=== PATIENT | female | born 1935 | race Caucasian/White ===

== ENCOUNTER 2018-10-29 21:00 | Emergency (ER) | payer OTHER ==
[2018-10-29] MEDS ORDERED: NA CHLORIDE 0.9% 1,000 ML ONE (21:52)
[2018-10-29 21:58] LABS: BUN Blood Urea Nitrogen 16 mg/dL (7-18); Bicarbonate 34 mmol/L (21-32); Glucose Level 122 mg/dL (74-106); Potassium 3.7 mmol/L (3.5-5.1); Sodium Level 142 mmol/L (136-145); Troponin (Emerg Dept Use Only) < 0.02 ng/mL (0.0-0.045)
[2018-10-29 22:04] LABS: Absolute Lymphocytes (CBC) 2.2 K/uL (0.7-4.9); Absolute Monocytes 0.9 K/uL (0.1-1.3); Absolute Neutrophil 4.6 K/uL (1.8-8.0); Basophils % 0.8 % (0-1.3); Eosinophils % 1.1 % (0-4.4); Hematocrit 36.9 % (36.0-45.0); MPV 7.6 fL (7.6-11.3); RBC Red Blood Cell Count 4.06 M/uL (3.86-4.86)
[2018-10-29 23:24] LABS: Urine Amorphous Sediment 1+ /HPF (NONE SEEN); Urine Bacteria <20 /HPF (<20); Urine Culture Reflex Order NOT NEEDED; Urine Mucus SLIGHT /HPF (NONE SEEN); Urine RBC NONE SEEN /HPF (NONE SEEN)
--- NOTE | 2018-10-29 23:52 | ER ---
Nurse's Notes [facility] Name: Shannon Short Age: 83 yrs Sex: Female : 1935 Arrival Date: 10/29/2018 Time: 21:02 Bed 24 Private MD: Diagnosis: Syncope and collapse Presentation: 10/29 21:03 Presenting complaint: EMS states: pt was signing at [employer] and started to feel weak, tl3 sat down and passed out for a few minutes, was AAOX4 at present. Transition of care: patient was not received from another setting of care. Onset of symptoms was October 29, 2018. Risk Assessment: Do you want to hurt yourself or someone else? Patient reports no desire to harm self or others. Initial Sepsis Screen: Does the patient meet any 2 criteria? No. Patient's initial sepsis screen is negative. Does the patient have a suspected source of infection? No. Patient's initial sepsis screen is negative. Care prior to arrival: IV initiated. 20 GA, in the right antecubital area. 21:03 Method Of Arrival: EMS: [facility] tl3 21:03 Acuity: SHAQ 3 tl3 Triage Assessment: 21:06 General: Appears in no apparent distress. slender, well groomed, well developed, well tl3 nourished, Behavior is calm, cooperative, appropriate for age. Pain: Denies pain. Neuro: Level of Consciousness is awake, alert, obeys commands, Oriented to person, place, time, situation, Appropriate for age Reports a syncopal episode. Cardiovascular: Patient's skin is warm and dry. Respiratory: Airway is patent Respiratory effort is even, unlabored, Respiratory pattern is regular, symmetrical. GI: No signs and/or symptoms were reported involving the gastrointestinal system. : No signs and/or symptoms were reported regarding the genitourinary system. Derm: No signs and/or symptoms reported regarding the dermatologic system. Musculoskeletal: No signs and/or symptoms reported regarding the musculoskeletal system. 21:09 : Reports incontinence. tl3 Historical: - Allergies: 21:06 Codeine; tl3 21:06 Vioxx; tl3 21:06 PENICILLINS; tl3 21:06 promethazine HCl; tl3 - Home Meds: 21:14 Vitamin D Oral 600 unit daily [Active]; Calcium Carbonate Oral 1000 mg daily for tl3 Osteoporosis [Active]; magnesium oxide 400 mg Oral cap 400 mg daily for Hypomagnesemia [Active]; metoprolol tartrate 25 mg Oral tab 1 tab 2 times per day for Hypertension [Active]; Lipitor 80 mg Oral tab 0.5 tab once daily for Mixed Hyperlipidemia [Active]; atorvastatin 10 mg oral tab 1 tab once daily [Active]; Protonix 20 mg Oral TbEC [Active]; omeprazole 40 mg Oral cpDR 1 cap once daily for Gastroesophageal reflux [Active]; - PMHx: 21:06 GERD; High Cholesterol; Hypertension; tl3 - Immunization history:: Adult Immunizations up to date. - Social history:: Smoking status: unknown. - Ebola Screening: : No symptoms or risks identified at this time. - Family history:: not pertinent. - Hospitalizations: : No recent hospitalization is reported. Screenin:15 Abuse screen: Denies threats or abuse. Nutritional screening: No deficits noted. tl3 Tuberculosis screening: No symptoms or risk factors identified. Fall Risk None identified. Assessment: 21:15 Reassessment: No changes from previously documented assessment. Neuro: No deficits tl3 noted. Cardiovascular: Rhythm is regular. 22:29 Reassessment: Patient appears in no apparent distress at this time. No changes from tl3 previously documented assessment. Patient and/or family updated on plan of care and expected duration. Pain level reassessed. Patient is alert, oriented x 3, equal unlabored respirations, skin warm/dry/pink. pt has no needs at this time. 10/30 00:01 Reassessment: Patient appears in no apparent distress at this time. No changes from tl3 previously documented assessment. Patient and/or family updated on plan of care and expected duration. Pain level reassessed. Patient is alert, oriented x 3, equal unlabored respirations, skin warm/dry/pink. pt ambulated to restroom without any difficulty, being discharged. Vital Signs: 10/29 21:10 BP 159 / 84; Pulse 58; Resp 18; Temp 97.6; Pulse Ox 100% ; Weight 45.36 kg; Height 5 tl3 ft. 2 in. (157.48 cm); 22:29 BP 149 / 73; Pulse 58; Resp 18; Pulse Ox 100% on R/A; tl3 10/30 00:01 BP 146 / 67; Pulse 59; Resp 18; Pulse Ox 98% on R/A; tl3 10/29 21:10 Body Mass Index 18.29 (45.36 kg, 157.48 cm) tl3 ED Course: 10/29 21:02 Patient arrived in ED. tl3 21:04 Triage completed. tl3 21:05 Baron Birmingham MD is Attending Physician. rn 21:10 Arm band placed on right wrist. tl3 21:15 Patient has correct armband on for positive identification. tl3 21:15 No provider procedures requiring assistance completed. Maintain EMS IV. Dressing tl3 intact. Good blood return noted. Site clean \T\ dry. Gauge \T\ site: 20 g RAC. 21:17 Luh Mccall, RN is Primary Nurse. tl3 21:[address] via stretcher. tl3 21:25 CT Head Brain wo Cont In Process Unspecified. EDMS 21:29 CT completed. Patient tolerated procedure well. Patient moved back from CT. nj 22:29 Speci-cath kit inserted, using sterile technique, specimen obtained. 8fr cath. tl3 10/30 00:01 IV discontinued, intact, bleeding controlled, No redness/swelling at site. Pressure tl3 dressing applied. Administered Medications: 10/29 21:48 Drug: NS 0.9% 500 ml Route: IV; Rate: bolus; Site: left antecubital; Delivery: Primary tl3 tubing; 22:15 Follow up: IV Status: Completed infusion; IV Intake: 500ml tl3 Point of Care Testing: Blood Glucose: 21:17 Blood Glucose: 120 mg/dL; tl3 Ranges: Intake: 22:15 IV: 500ml; Total: 500ml. tl3 Outcome: 23:51 Discharge ordered by . rn 10/30 00:01 Discharged to home ambulatory. tl3 Condition: stable Discharge instructions given to patient, family, Instructed on discharge instructions, follow up and referral plans. Demonstrated understanding of instructions, follow-up care. 00:03 Patient left the ED. tl3 Signatures: Dispatcher [employer] EDMS Baron Birmingham MD MD rn Jordan, Nathan nj Lowrey, Tammy, JASON RN tl3 Corrections: (The following items were deleted from the chart) 10/29 21:15 21:10 BP 159 / 84; Pulse 58bpm; Resp 18bpm; tl3 tl3
--- NOTE | 2018-10-29 23:52 | EDPHYS ---
Physician Documentation [facility] Name: Shannon Short Age: 83 yrs Sex: Female : 1935 Arrival Date: 10/29/2018 Time: 21:02 Bed 24 Private MD: ED Physician Baron Birmingham HPI: 10/29 21:38 This 83 yrs old Female presents to ER via EMS with complaints of Syncope. rn 21:38 The patient has experienced syncope. Onset: The symptoms/episode began/occurred just rn prior to arrival. Duration: This was a single episode. Associated injury: The patient did not suffer any apparent associated injury. Current symptoms: Currently, the patient is not experiencing any symptoms. The patient has not experienced similar symptoms in the past. Reports at [place], stood up to sing, got lightheaded, sat down, then had syncopal episode. No fever/vomiting/diarrhea. NO chest pain/sob/abd pain. Reports has been having lower back pain and was going to see Dr. Horne to get her urine tested. . Historical: - Allergies: 21:06 Codeine; tl3 21:06 Vioxx; tl3 21:06 PENICILLINS; tl3 21:06 promethazine HCl; tl3 - Home Meds: 21:14 Vitamin D Oral 600 unit daily [Active]; Calcium Carbonate Oral 1000 mg daily for tl3 Osteoporosis [Active]; magnesium oxide 400 mg Oral cap 400 mg daily for Hypomagnesemia [Active]; metoprolol tartrate 25 mg Oral tab 1 tab 2 times per day for Hypertension [Active]; Lipitor 80 mg Oral tab 0.5 tab once daily for Mixed Hyperlipidemia [Active]; atorvastatin 10 mg oral tab 1 tab once daily [Active]; Protonix 20 mg Oral TbEC [Active]; omeprazole 40 mg Oral cpDR 1 cap once daily for Gastroesophageal reflux [Active]; - PMHx: 21:06 GERD; High Cholesterol; Hypertension; tl3 - Immunization history:: Adult Immunizations up to date. - Social history:: Smoking status: unknown. - Ebola Screening: : No symptoms or risks identified at this time. - Family history:: not pertinent. - Hospitalizations: : No recent hospitalization is reported. ROS: 21:38 Constitutional: Negative for fever, chills, and weight loss, Eyes: Negative for injury, rn pain, redness, and discharge, Neck: Negative for injury, pain, and swelling, Cardiovascular: Negative for chest pain, palpitations, and edema, Respiratory: Negative for shortness of breath, cough, wheezing, and pleuritic chest pain, Abdomen/GI: Negative for abdominal pain, nausea, vomiting, diarrhea, and constipation, MS/Extremity: Negative for injury and deformity, Skin: Negative for injury, rash, and discoloration, Neuro: Negative for headache, weakness, numbness, tingling, and seizure. Exam: 21:38 Constitutional: This is a well developed, well nourished patient who is awake, alert, rn and in no acute distress. Head/Face: Normocephalic, atraumatic. Eyes: Pupils equal round and reactive to light, extra-ocular motions intact. Lids and lashes normal. Conjunctiva and sclera are non-icteric and not injected. Cornea within normal limits. Periorbital areas with no swelling, redness, or edema. ENT: dry MM Neck: Trachea midline, no thyromegaly or masses palpated, and no cervical lymphadenopathy. Supple, full range of motion without nuchal rigidity, or vertebral point tenderness. No Meningismus. Cardiovascular: Regular rate and rhythm. No pulse deficits. Respiratory: Lungs have equal breath sounds bilaterally, clear to auscultation. No increased work of breathing, no retractions or nasal flaring. Abdomen/GI: soft, non-tender MS/ Extremity: Pulses equal, no cyanosis. Neurovascular intact. Full, normal range of motion. Equal circumference. Neuro: Awake and alert, GCS 15, oriented to person, place, time, and situation. Cranial nerves II-XII grossly intact. Motor strength 5/5 in all extremities. Sensory grossly intact. Cerebellar exam normal. Vital Signs: 21:10 BP 159 / 84; Pulse 58; Resp 18; Temp 97.6; Pulse Ox 100% ; Weight 45.36 kg; Height 5 tl3 ft. 2 in. (157.48 cm); 22:29 BP 149 / 73; Pulse 58; Resp 18; Pulse Ox 100% on R/A; tl3 10/30 00:01 BP 146 / 67; Pulse 59; Resp 18; Pulse Ox 98% on R/A; tl3 10/29 21:10 Body Mass Index 18.29 (45.36 kg, 157.48 cm) tl3 MDM: 10/29 21:05 Patient medically screened. rn 23:50 Differential Diagnosis: cardiac arrhythmia, idiopathic syncope, vasovagal episode, rn dehydration. Data reviewed: vital signs, nurses notes, lab test result(s), EKG, radiologic studies, CT scan, and as a result, I will discharge patient. Counseling: I had a detailed discussion with the patient and/or guardian regarding: the historical points, exam findings, and any diagnostic results supporting the discharge/admit diagnosis, lab results, radiology results, the need for outpatient follow up, to return to the emergency department if symptoms worsen or persist or if there are any questions or concerns that arise at home. Response to treatment: the patient's symptoms have markedly improved after treatment, the patient's symptoms have resolved after treatment, the patient's condition has returned to base line, the patient is now symptom free, patient is well hydrated. and as a result, I will discharge patient. Special discussion: I discussed with the patient/guardian in detail that at this point there is no indication for admission to the hospital. It is understood, however, that if the symptoms persist or worsen the patient needs to return immediately for re-evaluation. 10/29 21:11 Order name: Basic Metabolic Panel; Complete Time: 23:12 rn 10/29 21:11 Order name: CBC with Diff; Complete Time: 23:12 rn 10/29 21:11 Order name: CT Head Brain wo Cont rn 10/29 21:11 Order name: Troponin (emerg Dept Use Only); Complete Time: 23:12 rn 10/29 21:11 Order name: Urine Microscopic Only; Complete Time: 23:26 rn 10/29 21:19 Order name: Glucose, Ancillary Testing; Complete Time: 23:12 EDMS 10/29 21:11 Order name: EKG; Complete Time: 21:11 rn 10/29 21:11 Order name: Cardiac monitoring; Complete Time: 21:17 rn 10/29 21:11 Order name: EKG - Nurse/Tech; Complete Time: :40 rn 10/29 21:11 Order name: IV Saline Lock; Complete Time: 21:17 rn 10/29 21:11 Order name: Labs collected and sent; Complete Time: 21:40 rn 10/29 21:11 Order name: NPO; Complete Time: 21:18 rn 10/29 21:11 Order name: O2 Per Protocol; Complete Time: 21:18 rn 10/29 21:11 Order name: O2 Sat Monitoring; Complete Time: 21:18 rn Administered Medications: 21:48 Drug: NS 0.9% 500 ml Route: IV; Rate: bolus; Site: left antecubital; Delivery: Primary tl3 tubing; 22:15 Follow up: IV Status: Completed infusion; IV Intake: 500ml tl3 Point of Care Testing: Blood Glucose: 21:17 Blood Glucose: 120 mg/dL; tl3 Ranges: Critical Glucose Levels:Adult <50 mg/dl or >400 mg/dl <40 mg/dl or >180 mg/dl Disposition: 10/29/18 23:51 Discharged to Home. Impression: Syncope and collapse. - Condition is Stable. - Discharge Instructions: Syncope. - Medication Reconciliation Form, Thank You Letter, Antibiotic Education, Prescription Opioid Use form. - Follow up: Private Physician; When: 2 - 3 days; Reason: Recheck today's complaints, Re-evaluation by your physician. - Problem is new. - Symptoms have improved. Signatures: Dispatcher [employer] EDMS Baron Birmingham MD MD rn Lowrey, Tammy, RN RN tl3 Corrections: (The following items were deleted from the chart) 10/30 00:03 10/29 23:51 10/29/2018 23:51 Discharged to Home. Impression: Syncope and collapse. tl3 Condition is Stable. Forms are Medication Reconciliation Form, Thank You Letter, Antibiotic Education, Prescription Opioid Use. Follow up: Private Physician; When: 2 - 3 days; Reason: Recheck today's complaints, Re-evaluation by your physician. Problem is new. Symptoms have improved. rn
[2018-10-30 00:54] VITALS: TEMP 97.6
[2018-10-30 00:56] VITALS: BP 146/67; O2SAT 98
--- NOTE | 2018-10-30 07:02 | EKG ---
Test Date: 2018-10-29 Test Time: 21:41:04 Transportation Lead: SHRUTHI MEASUREMENT RESULTS: Intervals: Rate: 60 OK: 142 QRSD: 112 QT: 454 QTc: 454 [place]: P: 62 OK: 142 QRS: 47 T: 31 INTERPRETIVE STATEMENTS: Normal sinus rhythm Incomplete right bundle branch block Borderline ECG Compared to ECG 10/28/2015 22:15:11 Incomplete right bundle-branch block now present Electronically Signed On 10-30-18 07:01:35 LOG CLERK by Donn Segal
--- NOTE | 2018-10-30 13:34 | RAD REPORT ---
EXAM DESCRIPTION: Head Brain Wo Cont CLINICAL HISTORY: 83 years Female, SYNCOPE COMPARISON: None. TECHNIQUE: 5 mm axial images were obtained along with 3 mm reformatted coronal and sagittal images. This exam was performed according to our departmental dose-optimization program, which includes autom ated exposure control, adjustment of the mA and/or kV according to patient size and/or less of iterat amelia reconstruction technique FINDINGS: No acute abnormal extracerebral fluid collections are demonstrated. The cortical sulci, ventricles, and cisterns are mildly prominent suggesting mild generalized volume loss. There are moderately severe bilateral microangiopathic white matter changes. There are no areas of altered attenuation identified to suggest acute hemorrhage, infarction or mass lesion. The visualized portions of the paranasal sinuses and mastoid air cells are clear. IMPRESSION: 1. No acute intracranial changes. Electronically signed by Jeff Vance MD 10/29/2018 9:37 AM RESIZER OPERATOR Due to temporary technical issues with the PACS/Fluency reporting system, reports are being signed by the in house radiologist as a courtesy to ensure prompt reporting. The interpreting radiologist is f ully responsible for the content of the report.
== END 2018-10-30 00:03 | disposition home or self-care (01) ==
LOC: ER 21:00
DX: R55 Syncope and collapse (principal); I10 Essential (primary) hypertension; E78.00 Pure hypercholesterolemia, unspecified; K21.9 Gastro-esophageal reflux disease without esophagitis; Z88.0 Allergy status to penicillin; Z88.5 Allergy status to narcotic agent; Z88.8 Allergy status to other drugs, medicaments and biological substances
CPT/HCPCS: 36415; 70450; 80048; 81015; 82962; 84484; 85025; 93005; 99284; J7030

== ENCOUNTER 2020-08-21 15:06 | Inpatient (IN) | payer OTHER ==
--- OUTSIDE RECORDS SUMMARY | 2020-08-21 15:09 | XMS REPORT | Continuity of Care Document ---
:07/08/1961 Author Organization [employer] Care Team Providers Name Role Phone [employer] Unavailable Un available Problems Problem Status Onset Classification Date Comments Sourc e Date Reported ANEMIA IN CHRONIC Active 03/01/20 Condition 03/25/2015 M H KIDNEY DISEASE [facility] RENAL CELL CANCER Active 08/18/20 Condition 03/25/2015 M H [facility] SECONDARY Active 03/10/20 Condition 03/25/2015 MH HYPERPARATHYROIDISM 13 [facility] Group CHRONIC KIDNEY DISEASE Active Condition 03/25/2015 STAGE IV (SEVERE) Me dical Group UNSPECIFIED ESSENTIAL Active Condition 03/25/2015 HYPERTENSION Medical Group DM Active Condition 03/25/2015 Medical Group 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6 UNITS No Longer 08/18/20 MH QD Active 13 [facility] Group MECLIZINE HCL PRN No Longer 08/18/20 MH 25 MG TABS Active 13 [facility] Group GLIPIZIDE 10 1 tab daily No Longer 08/18/20 MH MG TABS Active 13 Medical Group MECLIZINE HCL PRN No Longer 08/18/20 MH 25 MG TABS Active 13 Medical Group CRESTOR 20 MG 1 tab qd Active 03/10/20 MH TABS 13 [facility] Group COLCRYS 0.6 MG 1 tab daily Active 03/10/20 MH TABS prn gout 13 [facility] Group PRAVASTATIN 1 tab daily No Longer 03/10/20 MH SODIUM 80 MG Active 13 Medical TABS Group FUROSEMIDE 20 1 tab daily No Longer 03/10/20 MH MG TABS Active 13 Medical Group ASPIRIN 81 MG 1 tab daily No Longer 03/10/20 MH TABS Active 13 Medical Group ROCALTROL 0.25 1 TAB QD Active 03/10/20 MH MCG CAPS 13 [facility] Group LISINOPRIL 20 1 tab qd No Longer 03/10/20 MH MG TABS Active 13 Medical Group ALLOPURINOL 1 tab qd No Longer 03/10/20 MH 300 MG TABS Active 13 Medical Group CRESTOR 20 MG 1 tab qd Active 03/10/20 MH TABS 13 Medical Group COLCRYS 0.6 MG 1 tab daily Active 03/10/20 MH TABS prn gout 13 Medical Group FUROSEMIDE 20 1 tab daily No Longer 03/10/20 MH MG TABS Active 13 Medical Group LISINOPRIL 20 1 tab qd No Longer 03/10/20 MH MG TABS Active 13 Medical Group ALLOPURINOL 1 tab qd No Longer 03/10/20 MH 300 MG TABS Active 13 Medical Group CARVEDILOL 25 1 tab twice Active MH MG TABS a day Medical Group AMLODIPINE 1 tab daily Active MH BESYLATE 10 MG Medical TABS Group Allergies, Adverse Reactions, Alerts No Known Medication Allergies Immunizations No Data Provided for This Section Results Order Name Results Value Reference Date Interpretation Comments Laurie rce Range Chemistry BUN 85 7 - 22 2014 Medical Group Chemistry CREATININE 6.7 0.5 - 1.4 2014 Medical Group Chemistry SODIUM 142 135 - 145 MEQ/L 2014 Medical Group Chemistry POTASSIUM 4.5 3.5 - 5.1 MEQ/L 2014 Medical Group Chemistry CALCIUM 9.0 8.5 - 10.5 2014 Medical Group Chemistry PO4 4.8 2.5 - 4.5 2014 Medical Group Chemistry ALBUMIN 3.8 3.5 - 5.0 2014 Medical Group Chemistry TESTO, TOTAL 225 241 - 827 2014 Medical Group Chemistry PTH, INTACT 239.6 11.1 - 79.5 2014 Medical Group Chemistry PSA 2.46 0.00 - 4.00 2014 Medical Group Hematology HGB 11.4 14.0 - 18.0 2014 Medical Group Hematology HCT 35.7 42.0 - 54.0 2014 Medical Group Hematology PLATELETS 205 133 - 450 K/CMM 2014 Medical Group Chemistry PTH, INTACT 75 10 - 65 2013 Medical Group Chemistry CALCIUM 9.8 8.6 - 10.3 2013 Medical Group Chemistry PTH, INTACT 75 10 - 65 2013 Medical Group Chemistry CALCIUM 9.8 8.6 - 10.3 2013 Medical Group Chemistry PTH, INTACT 80 10 - 65 2012 Medical Group Chemistry CALCIUM 10.0 8.6 - 10.3 2012 Medical Group Chemistry PTH, INTACT 80 10 - 65 2012 Medical Group Chemistry CALCIUM 10.0 8.6 - 10.3 2012 Medical Group Chemistry PTH, INTACT 129 10 - 65 2012 Medical Group Chemistry CALCIUM 9.3 8.6 - 10.3 2012 Medical Group Chemistry PTH, INTACT 129 10 - 65 2012 Medical Group Chemistry CALCIUM 9.3 8.6 - 10.3 2012 Medical Group Pathology Reports No Data Provided for This Section Diagnostic Reports No Data Provided for This Section Consultation Notes No Data Provided for This Section Discharge Summaries No Data Provided for This Section History and Physicals No Data Provided for This Section Vital Signs No Data Provided for This Section Encounters Location Location Encounter Encounter Reason Attending ADM CA Stat Source Details Type Number For Provider Date Date Visit [facility] Lab Report [id number] Sowmya Ring, 11/29 11/29 [place] 540 /2014 [facility] Lab Report [id number] Sowmya Ring, 01/10 01/10 JULI Norman 150 /2014 [facility] Lab Report [id number] Sowmya Ring, 03/25 03/25 [place] [facility] 830 /2014 Jordan l [place] [facility] Nephrology Procedures No Data Provided for This Section Assessment and Plan No Data Provided for This Section Plan of Care No Data Provided for This Section Social History No Data Provided for This Section Family History No Data Provided for This Section Advance Directives No Data Provided for This Section Functional Status No Data Provided for This Section
--- NOTE | 2020-08-21 16:19 | RAD REPORT ---
EXAM DESCRIPTION: RAD - Chest Single View - 08/21/2020 4:13 pm CLINICAL HISTORY: COUGH COMPARISON: July 2012 TECHNIQUE: AP portable chest image was obtained 08/21/2020 4:13 pm . FINDINGS: Lung volumes are comparatively low. Fibrotic lung pattern is not substantially different w hen adjusting for the shallow inspiration. Calcified granuloma noted. No focal mass, consolidation, f ailure or volume overload. Heart and vasculature are normal. No measurable pleural effusion and no pn eumothorax. No acute bony abnormality seen. No acute aortic findings suspected. IMPRESSION: Limited shallow inspiration exam with no acute cardiopulmonary process. No significant change from comparison study.
[2020-08-21 16:30] LABS: Urine Blood 1+ (NEG); Urine Glucose NEGATIVE (NEG); Urine Protein 2+ (NEG); Urine Specific Gravity 1.025 (1.005-1.030); Urine pH 6.5 (5.0-7.0)
[2020-08-21 16:44] LABS: Absolute Lymphocytes (CBC) 1.2 K/uL (0.7-4.9); Basophils % 0.5 % (0-1.3); Hematocrit 41.6 % (36.0-45.0); Lymphocytes % 9.5 % (15.3-44.8); MPV 7.9 fL (7.6-11.3); Protime INR 1.01; RBC Red Blood Cell Count 4.65 M/uL (3.86-4.86)
[2020-08-21] MEDS ORDERED: NA CHLORIDE 0.9% 1,000 ML ONE (16:53)
[2020-08-21] MEDS ORDERED: NA CHLORIDE 0.9% 500 ML ONE (16:53)
[2020-08-21 16:57] LABS: ALT/SGPT 21 U/L (12-78); AST/SGOT 29 U/L (15-37); Albumin 3.3 g/dL (3.4-5.0); Alkaline Phosphatase 90 U/L (45-117); BUN Blood Urea Nitrogen 12 mg/dL (7-18); Bicarbonate 30 mmol/L (21-32); Bilirubin Direct 0.1 mg/dL (0-0.2); Bilirubin Total 0.4 mg/dL (0.2-1.0); Glucose Level 118 mg/dL (74-106); Magnesium 2.3 mg/dL (1.8-2.4); NT PRO-BNP 855 pg/mL (<450); Potassium 3.9 mmol/L (3.5-5.1); Protein, Total 7.4 g/dL (6.4-8.2); Sodium Level 142 mmol/L (136-145); Troponin (Emerg Dept Use Only) < 0.02 ng/mL (0.0-0.045)
--- NOTE | 2020-08-21 17:08 | ER ---
Nurse's Notes [facility] Name: Shannon Short Age: 84 yrs Sex: Female : 1935 Arrival Date: 08/21/2020 Time: 15:21 Bed 14 Private MD: Diagnosis: Altered mental status, unspecified;Urinary tract infection, site not specified;Alzheimer's disease;Other slipping, tripping and stumbling and falls Presentation: 08/21 15:20 Chief complaint: EMS states: patient brought in for worsening AMS x1 week. pt fell 2 zb days ago. hx of Alzheimer's. family report foul urine smell. BG level 154. Coronavirus screen: At this time, the client does not indicate any symptoms associated with coronavirus-19. Ebola Screen: No symptoms or risks identified at this time. Initial Sepsis Screen: Does the patient meet any 2 criteria? No. Patient's initial sepsis screen is negative. Does the patient have a suspected source of infection? No. Patient's initial sepsis screen is negative. Risk Assessment: Do you want to hurt yourself or someone else? Patient reports no desire to harm self or others. Onset of symptoms was August 19, 2020. 15:20 Method Of Arrival: EMS: [facility] zb 15:20 Acuity: SHAQ 2 zb Triage Assessment: 16:05 General: Appears in no apparent distress. comfortable, Behavior is calm, cooperative, zb appropriate for age. Pain: Denies pain. EENT: No signs and/or symptoms were reported regarding the EENT system. Neuro: Level of Consciousness is awake, alert, obeys commands, Oriented to person, situation. Cardiovascular: Capillary refill < 3 seconds in bilateral Patient's skin is warm and dry. Respiratory: Airway is patent Respiratory effort is even, unlabored, Respiratory pattern is regular, Breath sounds are clear bilaterally. GI: Abdomen is flat, distended, Bowel sounds present X 4 quads. : Urine is cloudy. Derm: Skin is intact, is fragile, Skin is dry, Skin is normal. Musculoskeletal: Circulation, motion, and sensation intact. Capillary refill < 3 seconds, in bilateral Range of motion: intact in all extremities. Historical: - Allergies: 16:19 Codeine; zb 16:19 PENICILLINS; zb 16:19 promethazine HCl; zb 16:19 Vioxx; zb - Home Meds: 16:19 atorvastatin 40 mg oral tab [Active]; metoprolol tartrate 25 mg Oral tab 1 tab 2 times zb per day for Hypertension [Active]; memantine oral oral [Active]; mirtazapine 30 mg oral tab [Active]; Xanax Oral [Active]; - PMHx: 16:19 GERD; High Cholesterol; Hypertension; zb - Immunization history:: Adult Immunizations up to date. - Family history:: not pertinent. - Social history:: Smoking status: unknown. Screenin:00 Abuse screen: Denies threats or abuse. Denies injuries from another. Nutritional zb screening: No deficits noted. Tuberculosis screening: No symptoms or risk factors identified. Fall Risk Fall in past 12 months (25 points). No secondary diagnosis (0 pts). IV access (20 points). Ambulatory Aid- Crutches/Cane/Walker (15 pts). Gait- Weak (10 pts.). Mental Status- Overestimates/Forgets Limitations (15 pts.). Total Walls Fall Scale indicates High Risk Score (45 or more points). Fall prevention measures have been instituted. Side Rails Up X 2 Placed Close to Nursing Station Frequent Obs/Assessments Occuring Family Present and informed to notify staff if the need to leave the bedside As available patient and family educated on Fall Prevention Program and Strategies. Assessment: 16:19 Reassessment: See triage assessment. zb 17:19 Reassessment: Patient appears in no apparent distress at this time. Patient and/or zb family updated on plan of care and expected duration. Pain level reassessed. AOX1. family at the bedside. 18:19 Reassessment: Patient appears in no apparent distress at this time. Patient and/or zb family updated on plan of care and expected duration. Pain level reassessed. pt aox1. family member states pt will start to . pt placed on bedplan. 19:19 Reassessment: Patient appears in no apparent distress at this time. Patient and/or jd3 family updated on plan of care and expected duration. Pain level reassessed. family at bedside. aox1. denies any pain at this time. 20:20 Reassessment: Patient appears in no apparent distress at this time. Patient and/or jd3 family updated on plan of care and expected duration. Pain level reassessed. pt at bedside. family has given BP medication to patient. anxious alert ECP. medications given. 21:00 Reassessment: Patient appears in no apparent distress at this time. Patient and/or jd3 family updated on plan of care and expected duration. Pain level reassessed. family at bedside. changed linen. pt more relaxed. 21:56 Reassessment: notified family of admission. pt resting quietly. jd3 Vital Signs: 15:20 BP 120 / 92; Pulse 97; Resp 18; Temp 98.4(O); Pulse Ox 99% on R/A; Weight 56.7 kg; zb Height 5 ft. 2 in. (157.48 cm); Pain 0/10; 16:45 BP 160 / 85; Pulse 92; Resp 16; Pulse Ox 97% on R/A; jd3 18:30 BP 149 / 92; Pulse 95; Resp 16; Pulse Ox 98% on R/A; jd3 20:30 BP 183 / 98; Pulse 94; Resp 18; Pulse Ox 98% on R/A; jd3 15:20 Body Mass Index 22.86 (56.70 kg, 157.48 cm) zb ED Course: 15:21 Patient arrived in ED. zb 15:24 Royal Ruiz MD is Attending Physician. leonila 15:55 Paula Butler, JASON is Primary Nurse. zb 16:05 Triage completed. zb 16:08 Arm band placed on. zb 16:08 Patient has correct armband on for positive identification. Bed in low position. Call zb light in reach. Side rails up X 1. Adult w/ patient. Pulse ox on. NIBP on. 16:13 XRAY Chest (1 view) In Process Unspecified. EDMS 16:14 Radiology exam delayed due to IV insertion attempt and/or patient not having mw3 appropriate IV at this time. 17:05 Abel Horne MD is Hospitalizing Provider. leonila 21:58 No provider procedures requiring assistance completed. Patient admitted, IV remains in jd3 place. Administered Medications: 18:35 Drug: Rocephin 1 grams Route: IV; Rate: per protocol; Site: right antecubital; zb 22:03 Follow up: Response: No adverse reaction; IV Status: Completed infusion zb 18:35 Drug: foLIC Acid 1 mg Route: IVPB; Site: right antecubital; zb 22:00 Follow up: Response: No adverse reaction; IV Status: Completed infusion; IV Intake: [id number] 18:36 Drug: NS 0.9% 500 ml Route: IV; Rate: bolus; Site: right antecubital; zb 22:03 Follow up: Response: No adverse reaction; IV Status: Completed infusion; IV Intake: zb 500ml 18:36 Drug: NS 0.9% 1000 ml Route: IV; Rate: 125 ml/hr; Site: right antecubital; zb 22:01 Follow up: Response: No adverse reaction; IV Status: Infusion continued; IV Intake: jd3 375ml 20:12 Drug: Ativan 0.5 mg Route: IVP; Site: right antecubital; zb 20:45 Follow up: Response: No adverse reaction; Anxiety decreased jd3 21:02 Not Given (Duplicate Order): Ativan 0.5 mg IVP once zb Intake: 22:00 IV: 10ml; Total: 10ml. jd3 22:01 IV: 375ml; Total: 385ml. jd3 22:03 IV: 500ml; Total: 885ml. zb Outcome: 17:07 Decision to Hospitalize by Provider. leonila 21:58 Admitted to Med/surg accompanied by tech, via stretcher, room 412, Report called to ching Rivas RN 21:58 Condition: stable 21:58 Instructed on the need for admit. 22:04 Patient left the ED. zb Signatures: Dispatcher [employer] Royal Javed MD MD cha Davies, Jonathon, RN RN jd3 Willis, Michelle mw3 Paula Butler RN RN zb Corrections: (The following items were deleted from the chart) 22:03 19:00 Response: No adverse reaction ching mathis 22:03 19:00 Response: No adverse reaction; IV Intake: 500ml ching mathis
--- NOTE | 2020-08-21 17:08 | EDPHYS ---
Physician Documentation [facility] Name: Shannon Short Age: 84 yrs Sex: Female : 1935 Arrival Date: 08/21/2020 Time: 15:21 Bed 14 Private MD: ED Physician Royal Ruiz HPI: 08/21 15:50 This 84 yrs old Female presents to ER via Unassigned with complaints of ams, leonila worsening dementia. 15:50 falls. The patient presents with confusion, trouble concentrating. Onset: The leonila symptoms/episode began/occurred 5 day(s) ago. Possible causes: CVA or TIA, head injury, low blood sugar. Associated signs and symptoms: Pertinent positives: dizziness. Current symptoms: In the emergency department the patient's symptoms are unchanged from the initial presentation. Patient's baseline: Neuro: alert and fully oriented, Motor: no deficits, Ambulation: walks with assist only. The patient has experienced similar episodes in the past, several times. Historical: - Allergies: 16:19 Codeine; zb 16:19 PENICILLINS; zb 16:19 promethazine HCl; zb 16:19 Vioxx; zb - Home Meds: 16:19 atorvastatin 40 mg oral tab [Active]; metoprolol tartrate 25 mg Oral tab 1 tab 2 times zb per day for Hypertension [Active]; memantine oral oral [Active]; mirtazapine 30 mg oral tab [Active]; Xanax Oral [Active]; - PMHx: 16:19 GERD; High Cholesterol; Hypertension; zb - Immunization history:: Adult Immunizations up to date. - Family history:: not pertinent. - Social history:: Smoking status: unknown. ROS: 15:50 Constitutional: Negative for fever, chills, and weight loss, Eyes: Negative for injury, leonila pain, redness, and discharge, ENT: Negative for injury, pain, and discharge, Neck: Negative for injury, pain, and swelling, Cardiovascular: Negative for chest pain, palpitations, and edema, Respiratory: Negative for shortness of breath, cough, wheezing, and pleuritic chest pain, Abdomen/GI: Negative for abdominal pain, nausea, vomiting, diarrhea, and constipation, Back: Negative for injury and pain, : Negative for injury, bleeding, discharge, and swelling, MS/Extremity: Negative for injury and deformity, Skin: Negative for injury, rash, and discoloration, Psych: Negative for depression, anxiety, suicide ideation, homicidal ideation, and hallucinations, Allergy/Immunology: Negative for hives, rash, and allergies, Endocrine: Negative for neck swelling, polydipsia, polyuria, polyphagia, and marked weight changes, Hematologic/Lymphatic: Negative for swollen nodes, abnormal bleeding, and unusual bruising. 15:50 Neuro: Positive for altered mental status, dizziness, weakness. Exam: 15:50 Constitutional: This is a well developed, well nourished patient who is awake, alert, leonila and in no acute distress. Head/Face: Normocephalic, atraumatic. Eyes: Pupils equal round and reactive to light, extra-ocular motions intact. Lids and lashes normal. Conjunctiva and sclera are non-icteric and not injected. Cornea within normal limits. Periorbital areas with no swelling, redness, or edema. ENT: Nares patent. No nasal discharge, no septal abnormalities noted. Tympanic membranes are normal and external auditory canals are clear. Oropharynx with no redness, swelling, or masses, exudates, or evidence of obstruction, uvula midline. Mucous membranes moist. Neck: Trachea midline, no thyromegaly or masses palpated, and no cervical lymphadenopathy. Supple, full range of motion without nuchal rigidity, or vertebral point tenderness. No Meningismus. Chest/axilla: Normal chest wall appearance and motion. Nontender with no deformity. No lesions are appreciated. Cardiovascular: Regular rate and rhythm with a normal S1 and S2. No gallops, murmurs, or rubs. Normal PMI, no JVD. No pulse deficits. Respiratory: Lungs have equal breath sounds bilaterally, clear to auscultation and percussion. No rales, rhonchi or wheezes noted. No increased work of breathing, no retractions or nasal flaring. Abdomen/GI: Soft, non-tender, with normal bowel sounds. No distension or tympany. No guarding or rebound. No evidence of tenderness throughout. Back: No spinal tenderness. No costovertebral tenderness. Full range of motion. Female : Normal external genitalia. Skin: Warm, dry with normal turgor. Normal color with no rashes, no lesions, and no evidence of cellulitis. MS/ Extremity: Pulses equal, no cyanosis. Neurovascular intact. Full, normal range of motion. Psych: Awake, alert, with orientation to person, place and time. Behavior, mood, and affect are within normal limits. 15:50 Neuro: Orientation: appropriate for stated age, to person, place, Not oriented to time, situation, Mentation: appropriate for stated age, Memory: immediate memory is intact, remote memory is impaired, recent memory the patient can't recall what they had for dinner last night, Cranial nerves: grossly normal, is grossly normal based on the patient's age, no acute changes, Cerebellar function: is grossly normal based on the patient's age, no acute changes, Motor: moves all fours, strength is normal, Sensation: appropriate no acute changes, Gait: not tested. Deep tendon reflexes are normal, Babinski testing is normal. 16:43 ECG was reviewed by the Attending Physician. [facility] Vital Signs: 15:20 BP 120 / 92; Pulse 97; Resp 18; Temp 98.4(O); Pulse Ox 99% on R/A; Weight 56.7 kg; zb Height 5 ft. 2 in. (157.48 cm); Pain 0/10; 16:45 BP 160 / 85; Pulse 92; Resp 16; Pulse Ox 97% on R/A; jd3 18:30 BP 149 / 92; Pulse 95; Resp 16; Pulse Ox 98% on R/A; jd3 20:30 BP 183 / 98; Pulse 94; Resp 18; Pulse Ox 98% on R/A; jd3 15:20 Body Mass Index 22.86 (56.70 kg, 157.48 cm) zb MDM: 15:24 Patient medically screened. leonila 15:57 Differential Diagnosis altered mental status, sepsis. Differential Diagnosis: CVA, leonila electrolyte abnormality, hypoglycemia, intracranial bleed, pneumonia, sepsis, TIA, UTI, volume depletion. Data reviewed: vital signs, nurses notes, lab test result(s), EKG, radiologic studies, CT scan, plain films. Data interpreted: manager monitoring: rate is 69 beats/min, rhythm is regular, Pulse oximetry: on room air is 96 %. Test interpretation: by ED physician or midlevel provider: ECG, plain radiologic studies. Counseling: I had a detailed discussion with the patient and/or guardian regarding: the historical points, exam findings, and any diagnostic results supporting the discharge/admit diagnosis, lab results, radiology results, the need for further work-up and treatment in the hospital. 08/21 15:49 Order name: Basic Metabolic Panel; Complete Time: 17: [facility] 08/21 15:49 Order name: CBC with Diff; Complete Time: 17: [facility] 08/21 15:49 Order name: LFT's; Complete Time: 17: [facility] 08/21 15:49 Order name: Magnesium; Complete Time: 17: [facility] 08/21 15:49 Order name: NT PRO-BNP; Complete Time: 17: [facility] 08/21 15:49 Order name: PT-INR; Complete Time: 17: [facility] 08/21 15:49 Order name: Troponin (emerg Dept Use Only); Complete Time: 17: [facility] 08/21 15:49 Order name: XRAY Chest (1 view); Complete Time: 17: [facility] 08/21 15:49 Order name: Urine Culture [facility] 08/21 15:49 Order name: CT Traumagram (Head C Spine CAP W Con) [facility] 08/21 16:07 Order name: Urine Dipstick--Ancillary (enter results); Complete Time: 17:01 [facility] 08/21 17:44 Order name: CT; Complete Time: 20:00 EDMS 08/21 15:49 Order name: EKG; Complete Time: 15:50 [facility] 08/21 15:49 Order name: Cardiac monitoring; Complete Time: 16:23 [facility] 08/21 15:49 Order name: EKG - Nurse/Tech; Complete Time: 16:22 [facility] 08/21 15:49 Order name: IV Saline Lock; Complete Time: 16:22 [facility] 08/21 15:49 Order name: Labs collected and sent; Complete Time: 16:23 [facility] 08/21 15:49 Order name: O2 Per Protocol; Complete Time: 16:22 [facility] 08/21 15:49 Order name: O2 Sat Monitoring; Complete Time: 16:22 [facility] 08/21 15:49 Order name: Urine Dipstick-Ancillary (obtain specimen); Complete Time: 16:05 [facility] 08/21 17:14 Order name: CONS Physician Consult EDMS EC:43 Rate is 94 beats/min. Rhythm is regular. QRS [place] is Normal. AL interval is shortened leonila at 108 msec. QRS interval is normal. QT interval is prolonged at 485 msec. No Q waves. T waves are Normal. No ST changes noted. Clinical impression: NSR w/ Non-specific ST/T Changes and No evidence of ischemia. Interpreted by me. Reviewed by me. Administered Medications: 18:35 Drug: Rocephin 1 grams Route: IV; Rate: per protocol; Site: right antecubital; zb 22:03 Follow up: Response: No adverse reaction; IV Status: Completed infusion zb 18:35 Drug: foLIC Acid 1 mg Route: IVPB; Site: right antecubital; zb 22:00 Follow up: Response: No adverse reaction; IV Status: Completed infusion; IV Intake: [id number] 18:36 Drug: NS 0.9% 500 ml Route: IV; Rate: bolus; Site: right antecubital; zb 22:03 Follow up: Response: No adverse reaction; IV Status: Completed infusion; IV Intake: zb 500ml 18:36 Drug: NS 0.9% 1000 ml Route: IV; Rate: 125 ml/hr; Site: right antecubital; zb 22:01 Follow up: Response: No adverse reaction; IV Status: Infusion continued; IV Intake: jd3 375ml 20:12 Drug: Ativan 0.5 mg Route: IVP; Site: right antecubital; zb 20:45 Follow up: Response: No adverse reaction; Anxiety decreased jd3 21:02 Not Given (Duplicate Order): Ativan 0.5 mg IVP once zb Disposition: 08/21/20 17:07 Hospitalization ordered by Abel Horne for Inpatient Admission. Preliminary diagnosis are Altered mental status, unspecified, Urinary tract infection, site not specified, Alzheimer's disease, Other slipping, tripping and stumbling and falls. - Bed requested for Telemetry/MedSurg (Inpatient). - Status is Inpatient Admission. zb - Condition is Fair. - Problem is new. - Symptoms have improved. Signatures: Dispatcher [employer] EDRoyal Forte MD MD cha Garcia, Cindy, RN RN Paula Freeman RN RN zb Davies, Jonathon RN jd3 Corrections: (The following items were deleted from the chart) 20:35 17:07 Hospitalization Ordered by Abel Horne MD for Inpatient Admission. Preliminary cg diagnosis is Altered mental status, unspecified; Urinary tract infection, site not specified; Alzheimer's disease; Other slipping, tripping and stumbling and falls. Bed requested for Telemetry/MedSurg (Inpatient). Status is Inpatient Admission. Condition is Fair. Problem is new. Symptoms have improved. leonila 22:04 20:35 08/21/2020 17:07 Hospitalization Ordered by A Coleen KELLOGG for Inpatient Admission. zb Preliminary diagnosis is Altered mental status, unspecified; Urinary tract infection, site not specified; Alzheimer's disease; Other slipping, tripping and stumbling and falls. Bed requested for Telemetry/MedSurg (Inpatient). Status is Inpatient Admission. Condition is Fair. Problem is new. Symptoms have improved. cg
[2020-08-21] MEDS ORDERED: CEFTRIAXONE/SWI 1gm 1 GM/10 ML SYR ONE (17:27)
--- NOTE | 2020-08-21 17:44 | RAD REPORT ---
EXAM DESCRIPTION: CT - Head C Spine Cap W Con - 08/21/2020 5:28 pm CLINICAL HISTORY: PAIN, fall, worsening MS, head, neck, chest and abdomen pain, foul-smelling urine COMPARISON: CT ABD PELVIS W CONTRAST dated 10/28/2015; Head Brain Wo Cont dated 10/29/2018 TECHNIQUE: Axial [address] head images were obtained. Axial [address] cervical spine images were obtaine d with sagittal and coronal reconstruction images reviewed. During dynamic enhancement of 100mL non-i onic contrast, axial 5 mm images of the chest, abdomen and pelvis were obtained. Biphasic technique p erformed of the abdomen and pelvis. All CT scans are performed using dose optimization technique as appropriate and may include automated exposure control or mA/KV adjustment according to patient size. FINDINGS: No intracranial hemorrhage, mass or edema. No midline shift or abnormal fluid collection. No acute cortical based infarction. Moderate severity atrophy and chronic ischemic changes match comp arison study. Ventricles are in proportion to volume loss. Mastoid air cells and paranasal sinuses ar e clear. No skull fracture. CT cervical spine imaging shows normal height. No fracture seen. Normal alignment of the vertebrae se en. There is posterior fusion hardware at C2-3. C6-7 disc space narrowing seen with endplate spurring . Bony foraminal encroachment present at C6-7. No paraspinal mass or hematoma seen. Central canal det ail is inherently limited. Concerns for traumatic disc herniation or traumatic cord injury can be fur ther addressed with MR imaging. CT chest shows no pneumothorax, pulmonary contusion or pleural fluid collection. No pneumonia or acut e lung parenchymal process seen. No mediastinal hematoma and the aorta and pulmonary arteries are unr emarkable. No chest will mass or abnormal axillary finding. No displaced rib fracture or other signif icant bony finding. A few small nonspecific hilar lymph nodes are present. CT abdomen and pelvis show no injury to solid abdominal viscera. Sigmoid diverticulosis present witho ut diverticulitis. Gallbladder and biliary tree are unremarkable. No bowel injury or significant find ing. No free air, free fluid or abnormal stranding. Carranza of the urinary bladder is slightly shaggy. No bladder calculus or focal bladder wall mass. No acute compression fracture changes seen. Accentuated thoracic kyphosis is present. There is slight wedging of midthoracic vertebrae but no convincing evidence for an acute process. There is slight an terior subluxation of L2 on L3 and L3 on L4 secondary to advanced facet joint degenerative change. Pr ominent degenerative changes at L4-5 results results in foraminal stenosis. No significant vascular finding. IMPRESSION: Atrophy and chronic ischemic changes are present with no acute intracranial finding. Cervical spine degenerative change present as detailed. No acute finding. No acute CT chest finding. Urinary bladder carranza are slightly shaggy. No bladder wall mass and no bladder lumen calculus. Cystit is is suspected and can be correlated with UA findings. Pyelonephritis is not suspected. No other significant findings on CT abdomen pelvis imaging.
[2020-08-21] MEDS ORDERED: FOLIC ACID 5 MG/ML VIAL ONE (18:29)
--- NOTE | 2020-08-21 19:44 | HP ---
BIANCA/EMMY Voice ID: [id number] MTDD
[2020-08-21] MEDS ORDERED: LORazepam 2 MG/ML VIAL ONE (20:18)
[2020-08-21] MEDS ORDERED: LORazepam 2 MG/ML VIAL IV PRN (21:34)
[2020-08-21] MEDS: MEMANTINE HCL 10 MG TABLET PO SCH (21:34)
[2020-08-21] MEDS ORDERED: ONDANSETRON 4 MG/2 ML VIAL IV PRN (21:34)
[2020-08-21] MEDS: METOPROLOL TAR 25 MG TAB PO SCH (21:34)
[2020-08-21] MEDS: MIRTAZAPINE 15 MG TAB PO SCH (21:34)
[2020-08-21] MEDS ORDERED: ACETAMINOPHEN 500 MG TAB PO PRN (21:34)
[2020-08-22 00:19] VITALS: BMI 20.5
[2020-08-22] MEDS: NA CHLORIDE 0.9% 1,000 ML IV SCH ×3 (01:09→17:34)
[2020-08-22] MEDS: FAMOTIDINE 20 MG/2 ML VIAL IV SCH ×2 (01:09→11:12)
[2020-08-22 04:02] LABS: Absolute Lymphocytes (CBC) 1.5 K/uL (0.7-4.9); Basophils % 0.4 % (0-1.3); Hematocrit 37.6 % (36.0-45.0); Lymphocytes % 13.8 % (15.3-44.8); MPV 7.9 fL (7.6-11.3); RBC Red Blood Cell Count 4.22 M/uL (3.86-4.86)
[2020-08-22 04:18] LABS: Potassium 3.5 mmol/L (3.5-5.1)
[2020-08-22] MEDS: METOPROLOL TAR 25 MG TAB PO SCH ×2 (06:21→18:02)
[2020-08-22] MEDS ORDERED: INFLUENZA VACCINE (for 3y+) 0.5 ML DOSE IMVAC ONE (08:00)
[2020-08-22] MEDS ORDERED: PNEUMOCOCCAL VACCINE 0.5 ML IMVAC ONE (08:00)
--- NOTE | 2020-08-22 08:00 | HP ---
Date of Admission: 08/22/2020 Chief Complaint: Altered mental status. History Of Present Illness: This is an 84-year-old female patient living at home with her daughter, has underlying dementia problem, was brought into emergency room with altered mental status. After she was evaluated in the ER, she was admitted to the hospital with urinary tract infection. When I saw her this morning, her mental status was significantly altered. She was lying in bed, awake, not in any distress. Does not recognize me. Does not answer any questions. Allergies: AMOXICILLIN CAUSING ITCHING, CODEINE, CAUSING NAUSEA AND VOMITING, HYDROCODONE CAUSING NAUSEA AND VOMITING, PHENERGAN CAUSING HALLUCINATIONS, ACTONEL CAUSES STOMACH UPSET, FOSAMAX ALSO CAUSES STOMACH UPSET. Medications: Alprazolam 0.25 mg at bedtime as needed for sleep, aspirin 81 mg daily, atorvastatin 40 mg daily at bedtime, donepezil 10 mg p.o. daily, memantine 5 mg 2 times a day, metoprolol tartrate 25 mg 2 times a day, mirtazapine 30 mg p.o. daily at bedtime, pantoprazole 40 mg daily. Review of Systems: [employer] INFORMATION CLERK: As mentioned above. All other systems reviewed and negative. Past Medical History: Significant for hypertension, mixed hyperlipidemia, diverticulosis, gastroesophageal reflux disease, osteoarthritis at multiple sites, insomnia, osteopenia, impaired fasting glucose, and senile dementia. Past Surgical History: , cervical spine surgery. Family History: Father had coronary artery disease, COPD. Mother had coronary artery disease, diabetes. Brother had Alzheimer disease. Sister with diabetes and emphysema. Social History: Negative for smoking or alcohol use. Physical Examination: Vital Signs: Temperature 97.8, pulse 81, respiratory rate 18, blood pressure 143/86, oxygen saturation 94%. General: Awake, alert, oriented, not in distress. HEENT: Head atraumatic, normocephalic. Conjunctivae nonerythematous. Sclerae white. Mouth, no thrush or edema noted. Ears/Nose, no mass, lesion, discharge noted. Neck: Supple. No JVD, lymph nodes, bruit, thyromegaly noted. Lungs: Bilateral good equal air entry. Clear to auscultation. No rhonchi. No rales. Heart: Normal heart sounds, no murmur or gallop. Abdomen: Soft, bowel sounds normal. No guarding, rigidity, tenderness, mass, hepatosplenomegaly, distention, or bruit noted. Extremities: No leg edema. No calf tenderness. Skin: No rash, ulcer, cellulitis. Lymphatics: No lymph node enlargement in neck, supraclavicular, infraclavicular region. Neuro: No focal neurological deficit. Chest: Unremarkable. External Genitalia: Deferred. Rectal: Deferred. [employer] INFORMATION CLERK: Patient has altered mental status and she is not answering any questions. Does not follow any commands. She is noted to be moving her upper extremities on her own spontaneously, trying to adjust the cover in the bed. Laboratory Data: Yesterday white count 12.2, hemoglobin 14.8, platelets 282. This morning; white count 11, hemoglobin 12.9, platelets 235. INR 1.01 yesterday. Chemistry from yesterday; sodium 142, potassium 3.9 chloride 106, bicarb 30, BUN 12, creatinine 0.77, glucose 118. Liver function tests unremarkable. This morning; sodium 141, potassium 3.5, chloride 107, bicarb 30, BUN 10, creatinine 0.63, glucose 111. Urinalysis 1+ blood, 3+ leukocyte esterase, 1+ ketones, 2+ proteins. Chest x-ray was negative for any acute cardiopulmonary changes. CAT scan of the head, chest, spine, abdomen, pelvis shows cerebral atrophy chronic ischemic changes. No acute intracranial findings. Degenerative changes of cervical spine. No acute chest findings and presence of diverticulosis without any diverticulitis. Urinary bladder wall is slightly shaggy. No evidence of bladder calculus or bladder wall mass. Impression: 1. Urinary tract infection. 2. Altered mental status secondary to above. 3. Hypertension. 4. Mixed hyperlipidemia. 5. Diverticulosis. 6. Gastroesophageal reflux disease. 7. Osteoarthritis, multiple sites. 8. Impaired fasting glucose. 9. Osteopenia. 10. Toxic encephalopathy. Plan: We will go ahead and admit the patient to hospital for further evaluation and management of this problem. The patient is appropriate for inpatient and is expected to spend 2 midnights in the hospital. We will continue IV fluid, IV antibiotics. Follow up on culture results. Home medications will be continued per order. We will consult Physical Therapy and consult neurologist, Dr. Oconnor. We will also consult Social Service to assist with discharge planning. DVT prophylaxis will be given using SCD. BIANCA/MODL Voice ID: [id number] MTDD
[2020-08-22] MEDS: MEMANTINE HCL 10 MG TABLET PO SCH ×4 (09:00→20:47)
[2020-08-22] MEDS ORDERED: CEFTRIAXONE 1 GM/NS 50 ML 1 GM/50 ML BAG IV SCH (09:00)
[2020-08-22] MEDS: CEFTRIAXONE/SWI 1gm 1 GM/10 ML SYR IV SCH ×2 (11:12→20:48)
[2020-08-22] MEDS: FAMOTIDINE 20 MG TAB PO SCH (20:47)
[2020-08-22] MEDS: MIRTAZAPINE 15 MG TAB PO SCH (20:47)
--- NOTE | 2020-08-22 21:36 | CON ---
Date of Consultation: 08/22/2020 Time: 1800. Reason: Altered mental status. History: This is an 84-year-old lady with history of Alzheimer disease. She has been living with he r daughter. Patient similar to many patients with Alzheimer disease has not been doing well in [facility] during the COVID pandemic, but she has had a rather precipitous decline over the last week. Jesus bourne is normally confused and has issues with wandering and has issues with agitation and behavioral di sturbances. Over the last week, she has been more confused and more combative and wandering more. Tamiko chavez is normally not continent. She needs assistance with toileting and transfers, in bathing and dressing and eating and taking her medications. The patient had a small fall and hit the front of he r head. She was more confused than usual and was speaking incoherently, so the daughter summoned EMS and they brought her to the emergency department where indeed it was confirmed that the patient was confused and incoherent and had a urinary tract infection with a white count of 12,000. CT scan of t he brain, spine, chest, abdomen, pelvis demonstrated no evidence of any type of cortical contusion, n o acute stroke, no hemorrhage. Moderate to severe atrophy is present on the CT scan of the brain. Tamiko chavez is now on a general medical floor, 4th floor. She is still delirious and confused, picking at the sheets in the air, and mumbling things nonsensically. I have not seen her in person in quite so metime actually. Does not appear to be any viable alternative but for the patient to be transferred from the acute setting to a fdc facility once she has recovered from the urinary tract infec tion given the worsening functional status. We will also obtain some additional advanced neuroimagin g if possible. Given the overall decline, consultation was requested. Past Medical History: Alzheimer disease, hypertension, hyperlipidemia. Medications: Xanax, atorvastatin, Aricept, Namenda, metoprolol, Remeron, pantoprazole. Allergies: AMOXICILLIN, CODEINE, HYDROCODONE, PHENERGAN, ACTONEL, FOSAMAX. Social History: She lives with her daughter. Patient requires assistance with essentially all basic activities of daily living. Review of Systems: Constitutional: Patient is chronically ill. Eyes: Negative, although difficult to obtain properly. History is obtained from the daughter. Ears, Nose, Throat: Negative. Cardiovascular: Hypertension. Pulmonary: Negative. GI: Reflux. : Urine infection. Musculoskeletal: Arthralgias. Neurologic: As noted. Psychiatric: As noted. Endocrine: Negative. Hematologic: Negative. Physical Examination: Vital Signs: 97.8, 85, 18, 171/89. Neurologic: She is an elderly lady, lying in bed, in no distress. She is awake. She talks, but she is not able to complete a full sentence and responses are not really appropriate to the question. S he does not follow commands even simple 1-step commands. Pupils are reactive. Has a slight left gaz e preference, although pupils do cross the midline ans ocular motion is full. Blinks to threat. Exa mination of her extremities reveals greater than 4+ strength throughout. Sensation intact to pain. Reflexes are generally brisk, 3/4. Toes are neutral. Gait and cerebellar are not tested. Pertinent Labs: CT scan is noted. White count today is 11. Creatinine is normal at 0.63. Impression: 1.Delirium. 2.Alzheimer disease. Plan: We will add thiamine IV 100 mg on a daily basis while she is here. Obtain a noncontrast brain MRI to evaluate for any other type of pathology that might change the overall management and the lik elihood that we will find something that will change the management is low but not zero. Patient jovana delgado require 24-hour supervision upon discharge, and I recommend to the daughter that she go to a [facility] with plans to likely have her stay at that facility long-term. Thank you for the consult. We will continue to follow with you. SARI Voice ID: [id number] Report ID: [id number]
[2020-08-23] MEDS: NA CHLORIDE 0.9% 1,000 ML IV SCH (03:34)
[2020-08-23] MEDS: METOPROLOL TAR 25 MG TAB PO SCH ×3 (06:09→22:06)
[2020-08-23] MEDS: MEMANTINE HCL 10 MG TABLET PO SCH ×2 (09:00→22:05)
[2020-08-23] MEDS: FAMOTIDINE 20 MG TAB PO SCH ×2 (09:00→22:06)
[2020-08-23] MEDS: THIAMINE 200 MG/2 ML INJ IVP SCH (10:49)
[2020-08-23] MEDS: CEFTRIAXONE/SWI 1gm 1 GM/10 ML SYR IV SCH ×2 (10:50→23:12)
[2020-08-23] MEDS ORDERED: D5 0.9 NS 1,000 ML IV SCH (19:00)
--- NOTE | 2020-08-23 20:24 | RAD REPORT ---
EXAM DESCRIPTION: MRI - Brain Wo Cont - 08/23/2020 7:57 pm CLINICAL HISTORY: Alteration of consciousness/confusion COMPARISON: 2018 TECHNIQUE: Axial, sagittal, and coronal magnetic images of the brain were obtained. Contrast was not requested FINDINGS: Mild to moderate signal within periventricular, deep and subcortical white matter likely i schemic changes secondary to small vessel disease. Cerebral atrophy is noted. Diffusion-weighted/ADC mapping does not reveal evidence of acute infarction. The ventricles are normal caliber. An extra-axial fluid collection is not present Fluid within the sinuses/mastoids is not noted IMPRESSION: No acute abnormality is displayed
--- NOTE | 2020-08-23 21:58 | PN ---
Date of Progress Note: 08/23/2020 Reason: Delirium. Interval History: The patient is still confused, but she is a little bit better today. She is still somewhat delirious, but is able to follow simple one-step commands. She still trails off frequently when she is trying to speak in a full sentence. No new laboratory data. Brain MRI has been perform ed, but unable to see the images. Currently, report remains pending like the study was just done not too long ago and has not been fully uploaded. Review of data reveals that the daughter may offer th e patient to go home with hospice. Physical Examination: She is awake, tangential, confused. Ocular motion full. Potter full. The patient will follow getti ng simple one-step commands, raising extremity, wiggle her toes, or stick out her tongue. Gaze prefe rence is not as prominent or really prominent at all today. Strength is greater than 4+. Reflexes a re brisk with symmetric and toes are neutral. Impression: 1.Delirium. 2.Alzheimer disease. Plan: We will follow up on MRI report once available. The patient will still require 24 hour superv ision upon discharge. We will continue to follow with you. RAVEN/EMMY Voice ID: [id number] Report ID: [id number]
[2020-08-23] MEDS: MIRTAZAPINE 15 MG TAB PO SCH (22:05)
[2020-08-23] MEDS: NITROGLYCERIN 1 GM PKT TD SCH (22:07)
[2020-08-24] MEDS: NITROGLYCERIN 1 GM PKT TD SCH ×3 (05:19→12:00)
[2020-08-24] MEDS: METOPROLOL TAR 25 MG TAB PO SCH (05:20)
--- NOTE | 2020-08-24 06:59 | PN ---
Date of Progress Note: 08/23/2020 Subjective: Patient was seen this morning for followup. She was lying in bed. Her mental status sharp s remained unchanged. Has not improved during this hospitalization and continues to have significant ly altered mental status as she came in with. She is not in any respiratory distress. Does not answ er any questions. Objective: Vital Signs: Reviewed. HEENT: Unremarkable. Lungs: Clear to auscultation. Heart: Sounds normal. Abdomen: Soft. Bowel sounds normal. No guarding, rigidity, tenderness, distention. Extremities: No leg edema. Laboratory Data: Her urine culture grew E coli and it is sensitive to ceftriaxone and multiple oral antibiotics. Impression: 1.Urinary tract infection. 2.Altered mental status likely secondary to above. 3.Alzheimer disease. 4.Hypertension. Plan: Patient's blood pressure is elevated. We will continue antihypertensive medication for it. C ontinue current IV antibiotics and we will consult Social Service to assist with discharge planning. Family will take her home and consult Hospice and director of social work with assist with Hospice arrangement s for the patient. BIANCA/MODL Voice ID: [id number] Report ID: [id number]
[2020-08-24] MEDS: CEFTRIAXONE/SWI 1gm 1 GM/10 ML SYR IV SCH (10:14)
[2020-08-24] MEDS: THIAMINE 200 MG/2 ML INJ IVP SCH (10:15)
[2020-08-24] MEDS: MEMANTINE HCL 10 MG TABLET PO SCH (10:15)
[2020-08-24] MEDS: FAMOTIDINE 20 MG TAB PO SCH (10:15)
[2020-08-24 12:35] VITALS: O2SAT 94
[2020-08-24 12:44] VITALS: BP 146/88
[2020-08-24 13:48] VITALS: TEMP 99
--- NOTE | 2020-08-26 07:46 | DS ---
Date of Discharge: 08/24/2020 History Of Present Illness: The patient was seen this morning for followup. No new complaints or pr oblems reported by the patient's nursing. The patient has significant altered mental status. Lying in bed, does not answer any questions, but she does open her eyes and smiles when we call her by her name. Physical Examination: Vital Signs: Reviewed. HEENT: Unremarkable. Lungs: Clear to auscultation. HEART: Sounds normal. Abdomen: Soft. Bowel sounds normal. No guarding, rigidity, tenderness, or distention. Extremities: No leg edema. Discharge Medications And Instructions: 1.Continue prior home medication except discontinue cholesterol medication, atorvastatin. 2.Cipro 250 mg p.o. twice a day for 1 week. 3.The patient to be admitted to hospice care and hospice medical secretary teacher to take over the patient's care. Laboratory Data: Labs done during this hospital stay upon admission 08/21/2020; white count 12.2, he moglobin 14.8, platelets 282, and on 08/22, white count was 11, hemoglobin 12.9, platelets 235. Upon admission; sodium 142, potassium 3.9, chloride 106, bicarb 30, BUN 12, creatinine 0.77, glucose 118. Liver function tests unremarkable. Urine culture grew E coli and it is sensitive to Cipro, Levaqui n, and multiple other antibiotics. Hospital Course: This is an 84-year-old female patient admitted to the hospital with altered mental status. Please see dictated H and P for more information. After the patient was evaluated in the em ergency room, she was admitted to the hospital with this problem. Her workup done in emergency room was unremarkable except urinary tract infection and she was admitted to the hospital, started on IV f luid, IV antibiotics. The patient's altered mental status, continued to remain more or less unchange d during this hospital stay. Social Service was consulted to help make arrangements for discharge pl terri. The patient lives at home with her daughter and daughter requested her to be sent home with hospice care and I agree with that. The patient has late stage Alzheimer disease and she is appropri ate candidate for hospice and her life expectancy is less than 6 months if disease continues to progr ess the way we are concerned at this point. Details were discussed with the patient's daughter on phone. Out of hospital DNR paperwork was signed and arrangements were made for the patient to go h [facility] with hospice agency of daughter's choice. Final Diagnoses: 1.Urinary tract infection. 2.Alzheimer disease, late stage. 3.Altered mental status secondary to above. 4.Hypertension. 5.Mixed hyperlipidemia. 6.Diverticulosis. 7.Gastroesophageal reflux disease. 8.Osteoarthritis, multiple sites. 9.Impaired fasting glucose. 10.Osteopenia. 11.Toxic encephalopathy. BIANCA/MODL Voice ID: [id number] Report ID: [id number]
== END 2020-08-24 14:20 | disposition hospice, home (50) | DRG 689 ==
LOC: ER 15:06 → ERHOLD 17:14 → 4TH 21:31
PROVIDERS: ADMIT Internal Medicine; ATTEND Internal Medicine
DX: N39.0 Urinary tract infection, site not specified (principal); G92 Toxic encephalopathy; F05 Delirium due to known physiological condition; I10 Essential (primary) hypertension; M19.90 Unspecified osteoarthritis, unspecified site; G30.1 Alzheimer's disease with late onset; F02.80 Dementia in other diseases classified elsewhere, unspecified severity, without behavioral disturbance, psychotic disturbance, mood disturbance, and anxiety; M85.80 Other specified disorders of bone density and structure, unspecified site; K57.90 Diverticulosis of intestine, part unspecified, without perforation or abscess without bleeding; E78.2 Mixed hyperlipidemia; K21.9 Gastro-esophageal reflux disease without esophagitis; B96.20 Unspecified Escherichia coli [E. coli] as the cause of diseases classified elsewhere; R73.01 Impaired fasting glucose; Z66 Do not resuscitate; Z88.5 Allergy status to narcotic agent; Z88.0 Allergy status to penicillin; Z88.8 Allergy status to other drugs, medicaments and biological substances; Z79.899 Other long term (current) drug therapy; Z79.82 Long term (current) use of aspirin; Z88.1 Allergy status to other antibiotic agents; Z20.828 Contact with and (suspected) exposure to other viral communicable diseases
CPT/HCPCS: 36415; 70450; 70551; 71045; 71260; 72125; 74177; 80048; 80076; 81003; 83735; 83880; 84484; 85025; 85610; 87077; 87086; 87088; 87186; 93005; 96365; 96366; 96368; 96375; 99285; J0696; J3411; J7030; J7040; J7042; Q9967; U0002